=== PATIENT | female | born 1975 | race Caucasian/White ===

== ENCOUNTER 2016-09-02 20:01 | Emergency (ER) | payer MEDICAID ==
[~2016-09-02] VITALS: Ht 160 cm; Wt 59.0 kg
[2016-09-02 20:20] VITALS: BP 118/72
== END 2016-09-02 23:20 | disposition left against medical advice (07) ==
LOC: ER 20:01
DX: Z53.21 Procedure and treatment not carried out due to patient leaving prior to being seen by health care provider (principal)